=== PATIENT | male | born 1975 | race Caucasian/White ===

== ENCOUNTER 2017-04-25 04:12 | Observation (INO) ==
[2017-04-25 04:36] LABS: Basophils # 0.1 K/mcL (0.0-0.2); Eosinophils # 0.3 K/mcL (0.0-0.6); Eosinophils % 3.7 %; Hematocrit 38.5 % (37.5-50.1); Hemoglobin 12.3 g/dL (12.9-16.9); Immature Granulocytes % 3.1 % (0-4); Lymphocytes # 1.9 K/mcL (0.6-4.6); Lymphocytes % 22.9 %; Mean Corpuscular HGB Conc 31.9 g/dL (31.6-35.5); Mean Corpuscular Hemoglobin 26.8 pg (28.0-33.3); Mean Corpuscular Volume 83.9 fL (83.0-100.0); Mean Platelet Volume 9.5 fL (9.4-12.4); Monocytes # 0.7 K/mcL (0.0-1.3); Monocytes % 8.8 %; Neutrophils # 4.9 K/mcL (1.6-8.9); Platelet Count 230 K/mcL (140-400); Red Blood Count 4.59 M/mcL (4.19-5.50); Red Cell Distribution Width 15.3 % (11.5-14.5); Segmented Neutrophils % 60.5 %
--- NOTE | 2017-04-25 04:36 | Emergency Department Note ---
Disposition Clinical Impression: Chest pain of uncertain etiology Disposition: Admitted As Inpatient Time of Disposition: 06:27 Chest Pain HPI - General Chief Complaint: ED Chest Pain Stated Complaint: chest pain Time Seen by Provider: 04/25/17 04:18 Source: patient, EMS Vital Signs Reviewed: Yes Nursing Notes Reviewed: Yes - History of Present Illness HPI Narrative: Mr. Aiken, 41-year-old male, presents from home for evaluation of chest pain. It awoke him from sleep at 3 AM. He describes a sharp stabbing pain beneath his left breast which radiated to his left jaw as well as to his left scapula. He had associated dyspnea. Patient notes he felt ill all day yesterday. Patient states he has been out of his medications since Wednesday. His home antihypertensives: Lisinopril 20 mg daily, Coreg 6.25 mg twice a day, Lasix 40 mg daily He was previously a patient with [facility] and had a stress test with echo in . He is unsure of the results. PMH: Hypertension, hyperlipidemia, obstructive sleep apnea, psoriasis, depression, anxiety. 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 Severity scale (1-10): 8 - Related Data Home Medications Medication Instructions Recorded Confirmed Carvedilol [Coreg] 3.125 mg PO BID 03/15/17 03/15/17 Furosemide [Lasix] 20 mg PO DAILY 03/15/17 03/15/17 Gabapentin [Neurontin] 300 mg PO TID 03/15/17 03/15/17 LORazepam [Ativan] 0.5 mg PO PRN 03/15/17 03/15/17 Lisinopril [Zestril] 20 mg PO DAILY 03/15/17 03/15/17 Meloxicam [Mobic] 7.5 mg PO BID 03/15/17 03/15/17 Omeprazole [PriLOSEC] 20 mg PO DAILY 03/15/17 03/15/17 Pravastatin Sodium [Pravachol] 20 mg PO QPM 03/15/17 03/15/17 Promethazine [Phenergan] 25 mg PO Q6HR PRN 03/15/17 03/15/17 Sertraline [Zoloft] 200 mg PO QPM 03/15/17 03/15/17 Tizanidine HCl [Zanaflex] 2 mg PO QID 03/15/17 03/15/17 Previous Rx's Medication Instructions Recorded Azithromycin [Azithromycin 6-Tab 250 mg PO PER PKG DI #6 tab 04/21/17 Pack] Benzonatate [Tessalon] 100 mg PO TID #15 capsule 04/21/17 Diclofenac Sodium [Voltaren] 1 appl TP QID #100 gm 04/21/17 Montelukast [Singulair] 10 mg PO DAILY #30 tablet 04/21/17 PredniSONE [Deltasone] 20 mg PO DAILY #12 tablet 04/21/17 Allergies Allergy/AdvReac Type Severity Reaction Status Date / Time cephalexin Allergy Hives Verified 04/21/17 10:01 NSAIDS (Non-Steroidal Allergy Hives Verified 04/21/17 10:01 Anti-Inflamma tramadol Allergy Hives Verified 04/21/17 10:01 All systems ED: reviewed and negative except as stated. Review of Systems: As Per HPI Chest Pain PMH - Past Medical History Medical history: Reports: asthma, CHF, fibromyalgia, hypertension, other Psychiatric history: Reports: anxiety, depression - Social History Smoking Status: Never smoker Alcohol use: Reports: none Drug use: Reports: none, IV Drug Use Physical Exam Vital Signs Reviewed General: Patient is alert, oriented, and in no acute distress. HEENT: No facial asymmetry. Head is normocephalic and atraumatic. Oral mucosa moist. Trachea midline. Cardiovascular: Heart regular rate and rhythm without clicks, rubs, gallops, or murmurs. No JVD. PMI nondisplaced. Respiratory: Symmetric chest rise with poor respiratory effort. Bilateral breath sounds are clear without wheezing, crackles, or rhonchi. Abdomen: Obese. Bowel sounds present normoactive x-4 quadrants. Abdomen is soft, nondistended, and nontender. Musculoskeletal: Spontaneously moving all extremities. Pain to palpation of patient's sternum and left chest. Neuro: GCS 15 Skin: Warm, dry. Generalized outbreak of psoriasis evident. Psych: Patient's affect is appropriate for situation. - General General appearance: alert Course Course Narrative: Patient presents with concerning story that he was awoken from sleep with this chest pain. Patient does have risk factors of hypertension, hyperlipidemia, obstructive sleep apnea, obesity. He still experiencing some chest pain at this time; it is exactly reproducible during my physical exam. Received aspirin 325 mg in route by EMS. We will attempt to obtain cardiac testing records from [facility]. Patient sees cardiology for continued evaluation of concentric LVH determined to be possibly severe on echocardiogram from outside hospital. Documentation received from [facility]: Nuclear myocardial perfusion scan of 02/05/2016- indication: Chest pain Findings: EF 67%, no focal wall motion abnormality, no reversible ischemic changes noted. Dilation of left ventricle with EDV 167 mL Patient's chest pain did improve after 3 sublingual nitroglycerin. Patient's troponin is 0.02. EKG shows no acute ischemic changes compared to previous. Chest x-ray is unremarkable. Patient has remained hemodynamically stable. I discussed the above and the patient as well as my clinical concerns given his cardiac risk factors. He is agreeable to admission for continued evaluation and management. I discussed the patient and his clinical picture with the admitting hospitalist , Dr. Lyman, who agrees to accept the patient for chest pain rule out ACS. Chest X-Ray 04/25/17 04:28 IMPRESSION: No focal airspace disease. D/ / Eric Ray MD / Eric Ray MD Interpreting Provider: Eric Ray MD Vital Signs Temperature 98.0 F 04/25/17 04:14 Pulse Rate 69 04/25/17 04:14 Respiratory Rate 16 04/25/17 04:14 Blood Pressure 195/110 04/25/17 04:14 O2 Sat by Pulse Oximetry 98 04/25/17 04:14 Temperature 98.0 F 04/25/17 04:14 Pulse Rate 78 04/25/17 05:52 Respiratory Rate 16 04/25/17 06:36 Blood Pressure 145/84 04/25/17 06:36 O2 Sat by Pulse Oximetry 94 04/25/17 05:52 Oxygen Delivery Oxygen Delivery Room Air Chest Pain - Medical Records Medical records reviewed: Yes I reviewed the patient's medical records. - Lab Data Lab results reviewed: Yes I reviewed the patient's lab results. Result diagrams: 04/25/17 04:20 04/25/17 04:20 Lab Results 11/04/25/17 04/25/17 Range/Units 04:20 04:20 04:20 WBC 8.2 (4.3-11.1) K/mcL RBC 4.59 (4.19-5.50) M/mcL Hgb 12.3 L (12.9-16.9) g/dL Hct 38.5 (37.5-50.1) % MCV 83.9 (83.0-100.0) fL MCH 26.8 L (28.0-33.3) pg MCHC 31.9 (31.6-35.5) g/dL RDW 15.3 H (11.5-14.5) % Plt Count 230 (140-400) K/mcL MPV 9.5 (9.4-12.4) fL Immature Gran % 3.1 (0-4) % Seg Neutrophils % 60.5 % Lymphocytes % 22.9 % Monocytes % 8.8 % Eosinophils % 3.7 % Basophils % 1.0 % Neutrophils # 4.9 (1.6-8.9) K/mcL Lymphocytes # 1.9 (0.6-4.6) K/mcL Monocytes # 0.7 (0.0-1.3) K/mcL Eosinophils # 0.3 (0.0-0.6) K/mcL Basophils # 0.1 (0.0-0.2) K/mcL Sodium 141 (136-145) mEq/L Potassium 3.4 L (3.5-4.5) mEq/L Chloride 106 (98-109) mEq/L Carbon Dioxide 24 (19-29) mEq/L BUN 12 (8-26) mg/dL Creatinine 0.71 L (0.72-1.25) mg/dL Est GFR ( Amer) > 60 (> 60) Est GFR (Non-Af Amer) > 60 (> 60) BUN/Creatinine Ratio 17 (6-26) Glucose 97 (70-99) mg/dL Calculated Osmolality 292 (280-300) Calcium 9.2 (8.6-10.8) mg/dL Troponin I 0.02 (0-0.03) ng/mL - Radiology Data Radiology results reviewed: Yes I reviewed the patient's radiology results. - EKG Data EKG attestation: Yes I reviewed and interpreted this EKG. EKG results narrative: EKG dated 04/25/17 at 04:16 interpreted as sinus rhythm with a rate of 73. Femoral intervals TX 187, QRS 111, QT/QT 37/422. Right axis. T-wave inversion in V1 and flattening in V2 present on comparative EKG. Otherwise nonspecific ST -T changes. No ischemic change compared to previous EKG dated 03/15/2017 Heart Score - Score History: Moderately Suspicious EKG: Non Specific repolarisation Disturbance Age: Less than 45 Risk Factors: Equal/Greater than 3 risk factor or history of atherosclerotic disease Troponin: Less than normal limit HEART Score Total: 4 Attestation Statement - Attestation Attestation: I, Luigi Nolasco MD, personally evaluated this patient and discussed their management with the resident physician. I reviewed the resident's note and agree with the documented findings, medical decision making, and plan of care. 41-year-old male presents to the emergency department by embolus with a complaint of awakening from sleep about 3 AM with sharp left chest pain below the left breast which radiated up into the left shoulder and the left side of the jaw. Patient has had similar episodes previously. He did have shortness of breath and nausea with the chest pain. Also some diaphoresis. Patient received aspirin per EMS. On examination patient is a well-developed morbidly obese male in no acute distress. He is very anxious. There is no cyanosis or diaphoresis. He is alert and oriented 3. There is some tenderness to palpation over the left anterior chest wall. Breath sounds are decreased but equal bilaterally with no rales or wheezes noted. Heart regular rate and rhythm. Abdomen soft with normal bowel sounds. No acute changes on EKG. Chest x-ray negative. Labs reviewed. Troponin normal. The hospitalist, Dr. Trinh, was consulted and accepted admission of the patient.
[2017-04-25 04:50] LABS: BUN/Creatinine Ratio 17 (6-26); Blood Urea Nitrogen 12 mg/dL (8-26); Calcium 9.2 mg/dL (8.6-10.8); Carbon Dioxide 24 mEq/L (19-29); Chloride 106 mEq/L (98-109); Glucose 97 mg/dL (70-99); Osmolality,Calculated 292 (280-300); Potassium 3.4 mEq/L (3.5-4.5); Sodium 141 mEq/L (136-145); eGFR For African Americans > 60 (> 60); eGFR For Non-African Americans > 60 (> 60)
[2017-04-25] MEDS: Nitroglycerin 0.4 MG TAB.SUBL SL PRN ×5 (05:43→09:55)
[2017-04-25] MEDS ORDERED: *HR* Morphine 2 MG/ML SYRINGE IVP ONE (06:24)
--- NOTE | 2017-04-25 10:24 | Internal Med History&Physical ---
Date of Encounter: 04/25/17 Time of Encounter: 10:24 Assessment and Plan (1) Chest pain of uncertain etiology Current visit: Yes Status: Acute 41/male Known to have a hypertension/hyperlipidemia Was recently hospitalized at [facility]. Complete workup for chest pain was carried out. Echocardiogram/stress test was done. Patient admitted today with the chest pain. Heart score: 2. Plan: Admit as observation. Cycle troponin. Cardiac diet. Today being Wednesday there will not be any possibility that we can get records from [facility] of the above mentioned investigation. Tomorrow on a priority basis we need to get the records of and stress test from [facility]. The echocardiogram is abnormal or the troponins are positive then please consult cardiology Of note I have examined this patient in unit 3B 16. All questions answered. (2) Bronchitis Current visit: No Status: Acute Mild bronchitis We will start patient on azithromycin. (3) Psoriatic arthritis Current visit: No Status: Acute Continue treatment for psoriasis/psoriatic arthritis. Patient is a follow-up at [facility] dermatology department. (4) Morbid obesity with BMI of 60.0-69.9, adult Current visit: Yes Status: Acute Patient needs bariatric surgery as outpatient. (5) DVT prophylaxis Current visit: Yes Status: Acute SCD Medical decision making: This patient has a moderate to severe risk of worsening in spite of being on appropriate treatment due to the complex comorbid conditions. Internal Medicine - H&P: HPI Chief complaint: Chest pain Admitted From: Emergency Dept Plans for Post Hospital Care: Home History of present illness: Mr. Aiken is a 41 year old male who previously he used to follow-up at [facility] his profile. Patient is recently shifted from [facility] to [facility]. He should not is in the process of getting a new primary care doctor. Patient was recently hospitalized in [facility] where he underwent echocardiogram and stress test. Patient was recently evaluated by Dr. Rice in [facility]. Dr. Rice told him to get the records from [facility] so that he can go over with those records and make a plan for possible cardiac catheterization versus medical management. Patient does have psoriasis and he has a follow-up for the same at [facility] dermatology department. Patient was complaining of chest pain since last 48 hours. The chest pain is left precordial, radiating to the shoulder and arm, sharp in nature, has a pressure-like sensation, aggravated by movement and deep breathing and relieved by rest. Patient was concerned for this kind of chest pain and that was the reason he came to the emergency room for further evaluation. Patient was evaluated in the emergency room. Basic labs were drawn. Chest x-ray was negative for any acute pathology. His potassium was 3.4 and hemoglobin was 12.3 other than that there were no abnormality on a CBC/BMP. His troponins were normal. Patient was hospitalized for acute chest pain to rule out acute coronary syndrome. Patient does not have positive family history. Past Med Surg Social Fam HX - Past Medical History Medical history: asthma, CHF, fibromyalgia, hypertension, other Psychiatric history: anxiety, depression - Social History Smoking Status: Never smoker Smokeless Tobacco Status: No Alcohol use: none Drug use: none - Family History Mother Living Status: Age at : 60 Cause of : cardiac arrest Hx Family Cardiac Disorders: Yes (valve abnormality, cardiomegaly, htn) Hx Family Endocrine Disorder: Yes (dm) Internal Medicine - H&P: Meds Carvedilol [Coreg] 3.125 mg PO BID 03/15/17 [History] Furosemide [Lasix] 20 mg PO DAILY 03/15/17 [History] Gabapentin [Neurontin] 300 mg PO TID 03/15/17 [History] LORazepam [Ativan] 0.5 mg PO PRN 03/15/17 [History] Lisinopril [Zestril] 20 mg PO DAILY 03/15/17 [History] Meloxicam [Mobic] 7.5 mg PO BID 03/15/17 [History] Omeprazole [PriLOSEC] 20 mg PO DAILY 03/15/17 [History] Pravastatin Sodium [Pravachol] 20 mg PO QPM 03/15/17 [History] Promethazine [Phenergan] 25 mg PO Q6HR PRN 03/15/17 [History] Sertraline [Zoloft] 200 mg PO QPM 03/15/17 [History] Tizanidine HCl [Zanaflex] 2 mg PO QID 03/15/17 [History] Benzonatate [Tessalon] 100 mg PO TID #15 capsule 04/21/17 [Rx] Diclofenac Sodium [Voltaren] 1 appl TP QID #100 gm 04/21/17 [Rx] Montelukast [Singulair] 10 mg PO DAILY #30 tablet 04/21/17 [Rx] PredniSONE [Deltasone] 20 mg PO DAILY #12 tablet 04/21/17 [Rx] Azithromycin [Azithromycin 6-Tab Pack] 250 mg PO PER PKG DI 04/25/17 [History] SUMAtriptan succinate [Imitrex] 50 mg PO DAILY PRN 04/25/17 [History] 3 Allergy/AdvReac Type Severity Reaction Status Date / Time cephalexin Allergy Hives Verified 04/21/17 10:01 NSAIDS (Non-Steroidal Allergy Hives Verified 04/21/17 10:01 Anti-Inflamma tramadol Allergy Hives Verified 04/21/17 10:01 All Systems PM: A 10-system review of systems was performed and is negative for pertinent findings except as documented above in the HPI. - Constitutional Constitutional: no chills, no fever(s), no night sweats - EENT Eyes: no change in vision, no discharge, no pain, no photophobia Ears: no ear discharge, no ear pain, no tinnitus Nose, mouth and throat: no dysphagia, no nasal discharge, no neck pain, no sore throat - Cardiovascular Cardiovascular ROS IM: chest pain, diaphoresis, dyspnea, palpitations, no lightheadedness, no syncope - Respiratory Respiratory: no cough, no dyspnea, no wheezing, no excessive phlegm production - Gastrointestinal Gastrointestinal: no abdominal pain, no diarrhea, no hematemesis, no hematochezia, no melena, no nausea, no vomiting - Musculoskeletal Musculoskeletal ROS IM: no numbness, no tingling - Integumentary Integumentary IM: no rash, no unusual bruising - Neurological Neurological ROS: no confusion, no convulsions, no focal weakness, no numbness, no tingling, no tremor(s) - Hematologic/Lymphatic Hematologic/Lymphatic: no easy bruising - Constitutional Vitals: Temp Pulse Resp BP Pulse Ox 97.8 F 71 18 161/81 95 04/25/17 07:57 04/25/17 07:57 04/25/17 07:57 04/25/17 07:57 04/25/17 07:57 General appearance: Present: A&O X 3, pleasant, no acute distress, loss of weight - Head Head exam: Present: atraumatic, normocephalic - Eye Eye exam: Present: PERRL, conjuntiva pink, sclera anicteric Pupils: Present: PERRL - Neck Neck exam general surgery: Present: supple, trachea midline. Absent: lymphadenopathy - Respiratory Respiratory exam: Present: CTAB. Absent: accessory muscle use, rales, rhonchi, wheezes - Cardiovascular Cardiovascular exam: Present: RRR, +S1, +S2. Absent: diastolic murmur, gallop, rubs, systolic murmur - GI/Abdominal GI/Abdominal exam: Present: normal bowel sounds, soft, no peritoneal signs. Absent: distended, tenderness - Extremities Exam Extremities exam: Present: warm, radial pulses palpable and symmetrical. Absent : calf tenderness, cyanotic, pedal edema - Neurological Exam Neurological exam: Present: CN II-XII intact, oriented X3, no focal deficits. Absent: pronater drift, facial droop, speech deficit - Skin Skin exam: Present: dry, intact Internal Med - H&P Results - Labs CBC & Chem 7: 04/25/17 04:20 04/25/17 04:20
[2017-04-25] MEDS ORDERED: Naloxone 0.4 MG/ML INJ IVP PRN (11:35)
[2017-04-25] MEDS ORDERED: *HR* LORazepam 0.5 MG TABLET PO PRN (11:39)
[2017-04-25] MEDS ORDERED: SUMAtriptan succinate 50 MG TABLET PO PRN (11:39)
[2017-04-25] MEDS ORDERED: Azithromycin 250 MG TABLET PO ONE (12:30)
[2017-04-25] MEDS: tiZANidine 4 MG TABLET PO SCH ×3 (12:44→19:59)
[2017-04-25] MEDS: (Diclofenac Sodium [Voltaren] 1 APPL) TP SCH ×3 (12:45→20:00)
[2017-04-25] MEDS: Gabapentin 300 MG CAPSULE PO SCH ×2 (14:15→19:59)
[2017-04-25] MEDS: Benzonatate 100 MG CAPSULE PO SCH ×2 (14:15→20:00)
[2017-04-25] MEDS: *HR* Morphine 2 MG/ML SYRINGE IVP PRN (14:15)
[2017-04-26 00:41] LABS: Basophils # 0.1 K/mcL (0.0-0.2); Basophils % 1.2 %; Eosinophils # 0.5 K/mcL (0.0-0.6); Eosinophils % 6.5 %; Hematocrit 38.5 % (37.5-50.1); Hemoglobin 12.2 g/dL (12.9-16.9); Immature Granulocytes % 1.9 % (0-4); Lymphocytes # 1.5 K/mcL (0.6-4.6); Lymphocytes % 19.6 %; Mean Corpuscular HGB Conc 31.7 g/dL (31.6-35.5); Mean Corpuscular Hemoglobin 26.7 pg (28.0-33.3); Mean Corpuscular Volume 84.2 fL (83.0-100.0); Mean Platelet Volume 9.4 fL (9.4-12.4); Monocytes # 0.6 K/mcL (0.0-1.3); Monocytes % 7.6 %; Neutrophils # 4.8 K/mcL (1.6-8.9); Platelet Count 232 K/mcL (140-400); Red Blood Count 4.57 M/mcL (4.19-5.50); Red Cell Distribution Width 15.6 % (11.5-14.5); Segmented Neutrophils % 63.2 %
[2017-04-26 00:49] LABS: INR 1.1; Prothrombin Time 11.9 Seconds (9.4-12.1)
[2017-04-26] MEDS: *HR* Morphine 2 MG/ML SYRINGE IVP PRN ×4 (00:51→22:08)
[2017-04-26 00:52] LABS: Activated Partial Thrombo Time 28.9 Seconds (26.0-36.0)
[2017-04-26 00:59] LABS: Alanine Aminotransferase 29 Units/L (0-55); Albumin 3.4 g/dL (3.5-5.0); Albumin/Globulin Ratio 0.9 (1.1-2.2); Alkaline Phosphatase 58 Units/L (38-126); Aspartate Amino Transferase 16 Units/L (5-34); BUN/Creatinine Ratio 22 (6-26); Bilirubin,Total 0.6 mg/dL (0.2-1.2); Blood Urea Nitrogen 17 mg/dL (8-26); Carbon Dioxide 26 mEq/L (19-29); Chloride 103 mEq/L (98-109); Cholesterol 220 mg/dL (< 200); Globulin 3.6 g/dL (2.4-3.5); Glucose 100 mg/dL (70-99); HDL Cholesterol 44 mg/dL (40-59); LDL Cholesterol,Calculated 116 mg/dL (0-99); Magnesium 2.2 mg/dL (1.6-2.6); Osmolality,Calculated 286 (280-300); Sodium 137 mEq/L (136-145); Triglycerides 298 mg/dL (< 150); eGFR For African Americans > 60 (> 60); eGFR For Non-African Americans > 60 (> 60)
[2017-04-26] MEDS: Azithromycin 250 MG TABLET PO SCH (08:11)
[2017-04-26] MEDS: Benzonatate 100 MG CAPSULE PO SCH ×3 (08:11→22:09)
[2017-04-26] MEDS: Furosemide 20 MG TABLET PO SCH (08:12)
[2017-04-26] MEDS: Lisinopril 20 MG TABLET PO SCH (08:13)
[2017-04-26] MEDS: Gabapentin 300 MG CAPSULE PO SCH ×3 (08:13→22:09)
[2017-04-26] MEDS: tiZANidine 4 MG TABLET PO SCH ×4 (08:14→22:09)
[2017-04-26] MEDS: predniSONE 20 MG TABLET PO SCH (08:15)
--- NOTE | 2017-04-26 11:35 | Electrocardiograph Report ---
[place] [id number] Test Date: 2017-04-25 Pat Name: Zac Aiken Department: 104 Room: 3B16 Gender: M E [employer] Developer: : 1975 Requested By: Hiram Cantu Order Number: [id number] Reading MD: Bro Eastman Measurements Intervals Beccaria Rate: 73 P: -24 TX: 187 QRS: -2 QRSD: 111 T: 21 QT: 397 QTc: 422 Interpretive Statements SINUS RHYTHM MODERATE INTRAVENTRICULAR CONDUCTION DELAY MINIMAL VOLTAGE CRITERIA FOR LVH, CONSIDER NORMAL VARIANT Electronically Signed On 04-26-2017 11:34:08 EST by Bro Eastman
[2017-04-26] MEDS: (Diclofenac Sodium [Voltaren] 1 APPL) TP SCH ×4 (11:57→22:56)
--- NOTE | 2017-04-26 18:07 | Internal Med Progress Note ---
Date of Encounter: 04/26/17 Time of Encounter: 18:04 - Assessment and plan (1) Chest pain of uncertain etiology Current Visit: Yes Status: Acute Assessment and plan: Patient has chest pain is improved. Patient has a stress test done in [facility] in a month of March 2017. Patient's gated EF is more than 60%. Patient does not have any perfusion defects. I have discussed these results with Dr. Nick from interventional cardiology. Dr. Nick evaluated this patient as outpatient. He recommended to get an echocardiogram. His echocardiogram is normal then patient can go home tomorrow. This plan has been excellent the patient at length. Patient is agreeable with the plan. (2) Bronchitis Current Visit: No Status: Acute Assessment and plan: Getting better Presently on azithromycin (3) Psoriatic arthritis Current Visit: No Status: Acute Assessment and plan: Stable (4) Morbid obesity with BMI of 60.0-69.9, adult Current Visit: Yes Status: Acute (5) DVT prophylaxis Current Visit: Yes Status: Acute - Subjective Interval history: Patient seen and examined. Childhood. Patient is comfortably lying in the bed. Patient denies shortness of breath, chest pain, nausea, vomiting, abdominal pain. - Constitutional Vitals: Temp Pulse Resp BP Pulse Ox 97.9 F 70 15 146/72 96 04/26/17 14:33 04/26/17 14:33 04/26/17 14:33 04/26/17 14:33 04/26/17 14:33 General appearance: Present: A&O X 3, pleasant, no acute distress, loss of weight - Head Head exam: Present: atraumatic, normocephalic - Eye Eye exam: Present: PERRL, conjuntiva pink, sclera anicteric Pupils: Present: PERRL - Neck Neck exam general surgery: Present: supple, trachea midline. Absent: lymphadenopathy - Respiratory Respiratory exam: Present: CTAB. Absent: accessory muscle use, rales, rhonchi, wheezes - Cardiovascular Cardiovascular exam: Present: RRR, +S1, +S2. Absent: diastolic murmur, gallop, rubs, systolic murmur - GI/Abdominal GI/Abdominal exam: Present: normal bowel sounds, soft, no peritoneal signs. Absent: distended, tenderness - Extremities Exam Extremities exam: Present: warm, radial pulses palpable and symmetrical. Absent : calf tenderness, cyanotic, pedal edema - Neurological Exam Neurological exam: Present: CN II-XII intact, oriented X3, no focal deficits. Absent: pronater drift, facial droop, speech deficit - Skin Skin exam: Present: dry, intact Internal Medicine: Result - Labs CBC & Chem 7: 04/26/17 00:20 04/26/17 00:20 Labs: Short CBC 04/26/17 Range/Units 00:20 WBC 7.5 (4.3-11.1) K/mcL Hgb 12.2 L (12.9-16.9) g/dL Hct 38.5 (37.5-50.1) % Plt Count 232 (140-400) K/mcL Neutrophils # 4.8 (1.6-8.9) K/mcL BMP 04/26/17 00:20 Sodium 137 Potassium 4.0 Chloride 103 Carbon Dioxide 26 BUN 17 Creatinine 0.78 Glucose 100 H Calcium 9.0 Cardiac Enzymes 04/25/17 04/26/17 Range/Units 18:14 00:20 Troponin I 0.01 0.01 (0-0.03) ng/mL Liver Function 04/26/17 Range/Units 00:20 Total Bilirubin 0.6 (0.2-1.2) mg/dL AST 16 (5-34) Units/L ALT 29 (0-55) Units/L Alkaline Phosphatase 58 (38-126) Units/L Albumin 3.4 L (3.5-5.0) g/dL - ABG Interpretation ABG results: PT/INR, D-dimer PT 11.9 Seconds (9.4-12.1) 04/26/17 00:20 Consult Discharge Plan - Plan Referrals: NONE,PCP [Primary Care Provider] - [place], PAC [Family Provider] -
[2017-04-26] MEDS ORDERED: Perflutren Lipid Microsphere 1.3 ML in 0.9 % Sodium Chloride 8.7 ML IVP ONE (20:29)
[2017-04-27] MEDS: *HR* Morphine 2 MG/ML SYRINGE IVP PRN ×2 (03:43→14:41)
[2017-04-27] MEDS: predniSONE 20 MG TABLET PO SCH (10:09)
[2017-04-27] MEDS: Lisinopril 20 MG TABLET PO SCH (10:09)
[2017-04-27] MEDS: Gabapentin 300 MG CAPSULE PO SCH ×2 (10:09→14:22)
[2017-04-27] MEDS: Azithromycin 250 MG TABLET PO SCH (10:09)
[2017-04-27] MEDS: tiZANidine 4 MG TABLET PO SCH ×3 (10:09→17:02)
[2017-04-27] MEDS: Benzonatate 100 MG CAPSULE PO SCH ×2 (10:10→14:22)
[2017-04-27] MEDS: Furosemide 20 MG TABLET PO SCH (10:10)
[2017-04-27] MEDS: (Diclofenac Sodium [Voltaren] 1 APPL) TP SCH ×3 (10:14→15:31)
[2017-04-27 15:07] VITALS: BP 140/57
--- NOTE | 2017-04-27 16:59 | Discharge Summary ---
Date of Encounter: 04/27/17 Time of Encounter: 15:30 - Discharge Diagnosis (1) Chest pain of uncertain etiology Priority: Primary Status: Acute (2) AKBAR (obstructive sleep apnea) Priority: Secondary Status: Chronic (3) Essential hypertension Priority: Secondary Status: Chronic (4) Anxiety and depression Priority: Secondary Status: Chronic (5) Psoriatic arthritis Priority: Secondary Status: Inactive (6) Morbid obesity with BMI of 60.0-69.9, adult Priority: Secondary Status: Chronic - Discharge Medications Home Medications: Carvedilol [Coreg] 3.125 mg PO BID 03/15/17 [History] Furosemide [Lasix] 20 mg PO DAILY 03/15/17 [History] Gabapentin [Neurontin] 300 mg PO TID 03/15/17 [History] LORazepam [Ativan] 0.5 mg PO DAILY PRN 03/15/17 [History] Lisinopril [Zestril] 40 mg PO DAILY 03/15/17 [History] Meloxicam [Mobic] 7.5 mg PO BID 03/15/17 [History] Omeprazole [PriLOSEC] 20 mg PO DAILY 03/15/17 [History] Sertraline [Zoloft] 200 mg PO QPM 03/15/17 [History] Tizanidine HCl [Zanaflex] 2 mg PO QID 03/15/17 [History] Benzonatate [Tessalon] 100 mg PO TID #15 capsule 04/21/17 [Rx] Azithromycin [Azithromycin 6-Tab Pack] 250 mg PO PER PKG DI 04/25/17 [History] SUMAtriptan succinate [Imitrex] 50 mg PO DAILY PRN 04/25/17 [History] Amitriptyline [Elavil] 100 mg PO HS 04/26/17 [History] Pravastatin Sodium [Pravachol] 40 mg PO QPM #0 04/27/17 [Rx] Allergies/Adverse Reactions: 3 Allergy/AdvReac Type Severity Reaction Status Date / Time cephalexin Allergy Hives Verified 04/21/17 10:01 NSAIDS (Non-Steroidal Allergy Hives Verified 04/21/17 10:01 Anti-Inflamma tramadol Allergy Hives Verified 04/21/17 10:01 Procedures/tests Complete & Pending: Procedures Performed prior 72 hours Category Date Time Status EV echocardiogram Routine Y 04/26/17 10:03 Completed Date of admission: 04/25/17 06:32 Primary care physician: PCP NONE Consults: 04/25/17 09:56 Consult to Turf Manager [CONS] Routine Reason for SW Consult: patient states he may need help at home. Discharging clinician: Odalys Coronel Anticipated date of discharge: 04/27/17 - Patient Status Disposition: Home, Self-Care Condition: Good Functional capacity at discharge: independent ambulation Overall status at discharge: patient is progressing back to baseline - Discharge Instructions Instructions: Chest Pain (DC), Chest Pain (GEN), Hypertension (DC), Hypertension (GEN), Anxiety (DC), Anxiety (GEN) Follow Up With: [place], PAC [Family Provider] - (Please call to make a follow up appt.) Additional Instructions: F/up with PCP in 1-2 weeks - Diet and Activity Activity: resume usual activities as tolerated, other (wear CPAP at night) Diet: low fat, low cholesterol, low salt diet Hospital course: Mr. Aiken is a 41 year old male with the above medical problems, who was admitted with atypical chest pain. Patient was recently admitted to a different hospital with similar complaints and noted to have negative workup per patient. Initial labs, chest x-ray showed no acute abnormality. EKG showed no acute ischemic changes. Telemetry monitoring remained uneventful. Serial troponins were negative. Echocardiogram was done which showed preserved ejection fraction, moderate concentric left ventricular hypertrophy, mild left ventricular diastolic dysfunction, mild right ventricular dilation. Nuclear stress testing from outside facility showed no evidence of ischemia or infarct. Lipid profile was abnormal with elevated triglycerides and LDL cholesterol, lifestyle modifications and use of statin were discussed with patient, weight loss was increased and he verbalized understanding. He is otherwise medically stable for discharge with outpatient follow-up. - Time Spent with Patient Total time spent providing and/or coordinating discharge services: Greater than 30 minutes (40 min) - Constitutional Vitals: Temp Pulse Resp BP Pulse Ox 98.2 F 63 16 140/57 95 04/27/17 15:05 04/27/17 15:05 04/27/17 15:05 04/27/17 15:05 04/27/17 15:05 General appearance: Present: A&O X 3, morbidly obese, answers questions appropriately - Respiratory Respiratory exam: Present: CTAB. Absent: accessory muscle use, rales, rhonchi, wheezes - Cardiovascular Cardiovascular exam: Present: RRR, +S1, +S2. Absent: diastolic murmur, gallop, rubs, systolic murmur
== END 2017-04-27 18:03 | disposition home or self-care (01) ==
LOC: EMEROO 04:12 → 3BNU 04:12 → SUATTDRO 06:32 → 3BNU 06:41
PROVIDERS: ADMIT Internal Medicine; ATTEND Internal Medicine

== ENCOUNTER 2020-10-17 19:33 | Observation (INO) ==
[2020-10-17] MEDS ORDERED: Isovue-370 500 ML BOTTLE IVP ONE (20:59)
[2020-10-17] MEDS ORDERED: *HR* FentaNYL (PF) 100 MCG/2 ML VIAL IVP ONE (21:41)
[2020-10-17 21:42] LABS: Basophils # 0.1 K/mcL (0.0-0.2); Basophils % 0.7 %; Eosinophils # 0.3 K/mcL (0.0-0.6); Eosinophils % 4.3 %; Hematocrit 36.1 % (37.5-50.1); Hemoglobin 11.8 g/dL (12.9-16.9); Immature Granulocytes % 1.3 % (0-4); Lymphocytes # 0.8 K/mcL (0.6-4.6); Lymphocytes % 11.3 %; Mean Corpuscular HGB Conc 32.7 g/dL (31.6-35.5); Mean Corpuscular Hemoglobin 27.3 pg (28.0-33.3); Mean Corpuscular Volume 83.4 fL (83.0-100.0); Mean Platelet Volume 9.1 fL (9.4-12.4); Monocytes # 0.6 K/mcL (0.0-1.3); Monocytes % 8.1 %; Neutrophils # 5.2 K/mcL (1.6-8.9); Platelet Count 194 K/mcL (140-400); Red Blood Count 4.33 M/mcL (4.19-5.50); Red Cell Distribution Width 14.6 % (11.5-14.5); Segmented Neutrophils % 74.3 %; White Blood Count 7.1 K/mcL (4.3-11.1)
[2020-10-17 22:07] LABS: Alanine Aminotransferase 16 Units/L (7-52); Albumin 4.3 g/dL (3.5-5.7); Albumin/Globulin Ratio 1.2 (1.1-2.2); Alkaline Phosphatase 76 Units/L (34-104); Aspartate Amino Transferase 14 Units/L (13-39); BUN/Creatinine Ratio 14 (6-26); Bilirubin,Total 0.6 mg/dL (0.3-1.0); Blood Urea Nitrogen 14 mg/dL (6-20); Calcium 9.2 mg/dL (8.6-10.3); Carbon Dioxide 25 mEq/L (23-29); Chloride 101 mEq/L (98-107); Globulin 3.6 g/dL (2.4-3.5); Glucose 128 mg/dL (70-105); Osmolality,Calculated 282 (280-300); Potassium 4.1 mEq/L (3.5-5.1); Sodium 135 mEq/L (136-145); Total Protein 7.9 g/dL (6.4-8.9); Troponin I < 0.03 ng/mL (< 0.04); eGFR For African Americans > 60 (> 60); eGFR For Non-African Americans > 60 (> 60)
[2020-10-17] MEDS ORDERED: MetroNIDAZOLE 500 MG/100 ML 500 MG/100 ML BAG IVPB ONE (23:06)
[2020-10-18] MEDS ORDERED: Naloxone 0.4 MG/ML INJ IVP PRN ×2 (00:32→04:25)
[2020-10-18] MEDS ORDERED: Ondansetron 4 MG/2 ML VIAL IVP PRN ×3 (00:32→04:25)
[2020-10-18] MEDS ORDERED: Ipratropium/Albuterol Neb 3 ML IH PRN ×2 (00:34→04:25)
[2020-10-18] MEDS ORDERED: 0.9 % Sodium Chloride 1,000 ML IVC SCH ×2 (00:45→04:25)
[2020-10-18] MEDS ORDERED: *HR* Succinylcholine 200 MG/10 ML VIAL IVP ONE (01:41)
[2020-10-18] MEDS ORDERED: *HR* FentaNYL (PF) 100 MCG/2 ML VIAL ONE ×2 (01:41→02:27)
[2020-10-18] MEDS ORDERED: *HR* Propofol 200 MG/20 ML VIAL IVP ONE (01:41)
[2020-10-18] MEDS ORDERED: *HR* Rocuronium Bromide 50 MG/5 ML VIAL ONE (01:41)
[2020-10-18] MEDS ORDERED: Sugammadex Sodium 200 MG/2 ML VIAL IV ONE ×2 (02:35)
[2020-10-18] MEDS ORDERED: *HR* HYDROmorphone PF 0.5 MG/0.5 ML SYRINGE IVP PRN ×2 (02:53→04:25)
[2020-10-18] MEDS ORDERED: SUMAtriptan succinate 50 MG TABLET PO PRN (04:25)
[2020-10-18] MEDS ORDERED: *HR* LORazepam 0.5 MG TABLET PO PRN (04:25)
[2020-10-18] MEDS ORDERED: MetroNIDAZOLE 500 MG/100 ML 500 MG/100 ML BAG IVPB SCH (08:00)
[2020-10-18] MEDS ORDERED: lisinopriL 20 MG TABLET PO SCH (09:00)
[2020-10-18] MEDS ORDERED: predniSONE 20 MG TABLET PO SCH (09:00)
[2020-10-18] MEDS ORDERED: Furosemide 20 MG TABLET PO SCH (09:00)
[2020-10-18] MEDS ORDERED: Fluticasone Propionate Nasal 50 MCG/SPRAY BOTTLE NS PRN (09:01)
[2020-10-18] MEDS: Gabapentin 300 MG CAPSULE PO SCH ×3 (09:12→20:26)
[2020-10-18] MEDS: carvediloL 6.25 MG TABLET PO SCH ×2 (09:13→16:16)
[2020-10-18] MEDS: MetroNIDAZOLE 500 MG/100 ML 500 MG/100 ML BAG IVPB SCH ×2 (09:14→16:17)
[2020-10-18] MEDS ORDERED: methocarbamoL 750 MG TABLET PO PRN (11:53)
[2020-10-18] MEDS ORDERED: Vancomycin 2,000 MG/520 ML IV.SOLN IVPB SCH (12:00)
[2020-10-18 12:34] LABS: Basophils # 0.1 K/mcL (0.0-0.2); Basophils % 0.8 %; Eosinophils # 0.3 K/mcL (0.0-0.6); Eosinophils % 4.2 %; Hematocrit 36.5 % (37.5-50.1); Hemoglobin 11.6 g/dL (12.9-16.9); Immature Granulocytes % 1.9 % (0-4); Lymphocytes # 0.7 K/mcL (0.6-4.6); Lymphocytes % 10.7 %; Mean Corpuscular HGB Conc 31.8 g/dL (31.6-35.5); Mean Corpuscular Hemoglobin 27.1 pg (28.0-33.3); Mean Corpuscular Volume 85.3 fL (83.0-100.0); Mean Platelet Volume 9.6 fL (9.4-12.4); Monocytes # 0.5 K/mcL (0.0-1.3); Monocytes % 7.6 %; Neutrophils # 4.6 K/mcL (1.6-8.9); Platelet Count 216 K/mcL (140-400); Red Blood Count 4.28 M/mcL (4.19-5.50); Red Cell Distribution Width 14.7 % (11.5-14.5); Segmented Neutrophils % 74.8 %; White Blood Count 6.2 K/mcL (4.3-11.1)
[2020-10-18 12:43] LABS: BUN/Creatinine Ratio 14 (6-26); Blood Urea Nitrogen 13 mg/dL (6-20); Carbon Dioxide 23 mEq/L (23-29); Chloride 102 mEq/L (98-107); Glucose 138 mg/dL (70-105); Osmolality,Calculated 280 (280-300); Potassium 3.9 mEq/L (3.5-5.1); Sodium 134 mEq/L (136-145); Troponin I < 0.03 ng/mL (< 0.04); eGFR For African Americans > 60 (> 60); eGFR For Non-African Americans > 60 (> 60)
[2020-10-18 13:03] LABS: INR 1.3; Prothrombin Time 14.5 Seconds (9.4-12.1)
[2020-10-18] MEDS ORDERED: *HR* HYDROcodone/Acet 5/325 mg TABLET PO PRN (13:07)
[2020-10-18] MEDS ORDERED: Acetaminophen 325 MG TABLET PO PRN (13:07)
[2020-10-18] MEDS ORDERED: Piperacillin/Tazobactam 3.375 GM in 0.9 % Sodium Chloride Mini Bag 100 ML IVPB SCH (16:00)
[2020-10-18 20:05] VITALS: BP 144/79
[2020-10-18] MEDS ORDERED: NON-FORMULARY MEDICATION 1 EACH EACH (Carvedilol [Carvedilol] 12.5 MG Tablet) PO SCH (21:00)
[2020-10-19] MEDS ORDERED: AMITRIPTYLINE HCL 150 MG PO SCH (09:00)
[2020-10-19] MEDS ORDERED: NON-FORMULARY MEDICATION 1 EACH EACH (Lisinopril [Zestril] 40 MG Tablet) PO SCH (09:00)
[2020-10-19] MEDS ORDERED: NON-FORMULARY MEDICATION 1 EACH EACH (Atorvastatin Calcium [Lipitor] 20 MG Tablet) PO SCH (09:00)
[2020-10-19] MEDS ORDERED: Spironolactone 25 MG TABLET PO SCH (09:00)
[2020-10-19] MEDS ORDERED: NON-FORMULARY MEDICATION 1 EACH EACH (Pantoprazole Sodium [Protonix] 40 MG Tablet.Dr) PO SCH (09:00)
== END 2020-10-18 23:31 | disposition home or self-care (01) ==
LOC: EMEROOARM 19:33 → 2ANU 19:33 → SUATTDRO 23:46 → CDU 23:55 → 3NENU 10-18 19:40
PROVIDERS: ADMIT Student in an Organized Health Care Education/Training Program; ATTEND Student in an Organized Health Care Education/Training Program